=== PATIENT | male | born 1960 | race Hispanic/Latino ===

== ENCOUNTER 2018-08-16 23:41 | Emergency (ER) | payer MEDICARE, OTHER ==
[2018-08-16 23:58] VITALS: BMI 32.1
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
[2018-08-17 02:19] VITALS: BP 127/76; PULSE 88; RESP 16; TEMP 98.1; O2SAT 99
== END 2018-08-17 01:45 | disposition home or self-care (01) ==
LOC: ED 23:41
DX: Z77.098 Contact with and (suspected) exposure to other hazardous, chiefly nonmedicinal, chemicals (principal); J44.9 Chronic obstructive pulmonary disease, unspecified